=== PATIENT | male | born 1955 | race Caucasian/White ===

== ENCOUNTER → 2017-05-21 | Outpatient (CLI) | payer BC, OTHER ==
[~2017-05-21] MED LIST: NO MEDICATIONS
[2017-05-21 12:22] LABS: MEAN CORPUSCULAR HEMOGLOBIN 30.8 pg (27.0-33.0); MEAN CORPUSCULAR HGB CONC 34.8 g/dl (32.0-36.5); MEAN CORPUSCULAR VOLUME 88.6 fl (80.0-96.0); PLATELET COUNT, AUTOMATED 291 10^3/uL (150-450); RED CELL DISTRIBUTION WIDTH 13.2 % (11.5-14.5); WHITE BLOOD COUNT 12.2 10^3/uL (4.0-10.0)
[2017-05-21 12:35] LABS: INR 0.93
--- NOTE | 2017-05-21 12:56 | REP ---
Clinical: Chest pain. Arthritis . Comparison: None . Technique: PA and lateral. Findings: The mediastinum and cardiac silhouette are normal. The lung young are clear and without acute consolidation, effusion, or pneumothorax. The skeletal structures are intact and normal. Impression: 1. No acute cardiopulmonary process. Signed by Jose R Gaines MD 05/21/2017 12:47 P
[2017-05-21 13:03] LABS: ERYTHROCYTE SEDIMENTATION RATE 66 mm/hr (0-20)
[2017-05-21 13:08] LABS: ALBUMIN 3.5 GM/DL (3.2-5.2); ALBUMIN/GLOBULIN RATIO 0.92 (1.00-1.93); ALKALINE PHOSPHATASE 97 U/L (45-117); ALT/SGPT 29 U/L (12-78); ANION GAP 7 MEQ/L (8-16); AST/SGOT 12 U/L (7-37); BILIRUBIN,TOTAL 0.6 MG/DL (0.2-1.0); BLOOD UREA NITROGEN 14 MG/DL (7-18); CALCIUM LEVEL 8.8 MG/DL (8.8-10.2); CARBON DIOXIDE LEVEL 29 MEQ/L (21-32); CHLORIDE LEVEL 104 MEQ/L (98-107); CREATININE FOR GFR 0.95 MG/DL (0.70-1.30); GLOMERULAR FILTRATION RATE > 60.0 (>49); GLUCOSE, FASTING 74 MG/DL (80-110); POTASSIUM SERUM 4.3 MEQ/L (3.5-5.1); SODIUM LEVEL 140 MEQ/L (136-145); TOTAL PROTEIN 7.3 GM/DL (6.4-8.2)
--- NOTE | 2017-05-21 21:37 | ECGEPIP ---
Stationary ECG Study [facility] Test Date: 2017-05-21 Pat Name: JANNA TUBBS Department: Room: - Gender: M Claims Counsel: YOANA : 1955 Requested By: Sheldon Chambers Order Number: [id number] Reading MD: Les Ugarte Measurements Intervals [place] Rate: 71 P: 54 [place]: 161 QRS: 15 QRSD: 97 T: 2 QT: 378 QTc: 413 Interpretive Statements Normal sinus rhythm Nonspecific T wave abnormality No significant change when compared to prior tracing of 02/06/2012 Electronically Signed On 05-21-2017 21:36:45 EST by Les Ugarte
== END ==
LOC: M ADMPAT 10:16
PROVIDERS: ATTEND Orthopaedic Surgery
DX: M17.12 Unilateral primary osteoarthritis, left knee (principal)

== ENCOUNTER → 2017-05-29 | Outpatient (REF) | payer OTHER ==
[~2017-05-29] MED LIST changes: +COUM2.5T17 PO; +PERC5TAB12 PO
[2017-05-29 18:51] LABS: BASO # 0.1 10^3/uL (0.0-0.2); EOS # 0.2 10^3/uL (0.0-0.50); EOS % 1.9 % (0.0-3.0); IMMATURE GRANULOCYTE % 1.7 % (0-0); LYMPH # 2.3 10^3/uL (1.5-4.5); LYMPH % 26.2 % (24.0-44.0); MEAN CORPUSCULAR HEMOGLOBIN 29.9 pg (27.0-33.0); MEAN CORPUSCULAR HGB CONC 33.6 g/dl (32.0-36.5); MEAN CORPUSCULAR VOLUME 88.8 fl (80.0-96.0); MONO # 0.8 10^3/uL (0.0-0.8); MONO % 9.1 % (0.0-5.0); NEUTROPHILS # 5.2 10^3/uL (1.8-7.7); NEUTROPHILS % 60.1 % (36.0-66.0); PLATELET COUNT, AUTOMATED 370 10^3/uL (150-450); RED CELL DISTRIBUTION WIDTH 13.2 % (11.5-14.5); WHITE BLOOD COUNT 8.6 10^3/uL (4.0-10.0)
[2017-05-29 19:03] LABS: FREE T4 0.93 NG/DL (0.76-1.46)
== END ==
LOC: M SFHCCAPE 10:38
PROVIDERS: ATTEND Physician Assistant
DX: Z13.6 Encounter for screening for cardiovascular disorders (principal)

== ENCOUNTER 2017-06-03 09:59 | Inpatient (IN) | payer BC, OTHER ==
[2017-05-21 10:53] VITALS: BP 124/78
--- NOTE | 2017-05-30 12:15 | HPE ---
DATE OF ADMISSION: 06/03/2017 ATTENDING PHYSICIAN: Dr. Sheldon Quinn. CHIEF COMPLAINT: Left knee pain and stiffness. HISTORY: The patient is a pleasant 62-year-old male with progressively worsening left knee pain and stiffness. He failed to improve with conservative measures. He continues to have symptoms with weightbearing activities and activities of daily living. The patient has consented for an elective left total knee arthroplasty with Dr. Quinn. Medical optimization pending with Jo Grewal. MEDICATIONS: No active medications. ALLERGIES: PENICILLIN CHRONIC MEDICATION CONDITIONS: None. PAST SURGICAL HISTORY: None. FAMILY HISTORY: Noncontributory. SOCIAL HISTORY: The patient is and lives with his spouse. He does not use tobacco products. REVIEW OF SYSTEMS: The patient denies fevers, chills, nausea, vomiting, or diarrhea. Denies chest pain, shortness of breath, cough, headache or abdominal pain. He continues to have left knee pain with weightbearing activities and activities of daily living. PHYSICAL EXAMINATION: The patient is a well-nourished, well-developed male in no apparent distress. VITAL SIGNS: Height 5 foot 6 inches, weight 190 pounds, temperature 96.3, blood pressure 128/84, heart rate 68, respirations 12. NECK: Supple without lymphadenopathy. HEART: Regular rate and rhythm. LUNGS: Clear to auscultation bilaterally. ABDOMEN: Soft, nontender to palpation. Bowel sounds are present. MUSCULOSKELETAL: Left knee reveals very mild diffuse edema. No erythema, warmth or evidence of infection. There is tenderness along the medial and lateral joint lines. The patient can extend almost 0 degrees and flex to approximately 100 degrees. Left lower extremity strength is normal. There is no hip irritability elicited with range of motion. His calf is soft, nontender to palpation with no palpable cords noted. Distally, he is neurovascularly intact. LABORATORY DATA: EKG: Normal sinus rhythm. Nonspecific T-wave abnormality. Chest x-ray: No acute cardiopulmonary process. Urinalysis: Negative with the exception of a small amount of mucous. Urine cultures shows no growth. Nasal and sinus cultures shows normal [place]. Prothrombin time 12.5, INR 0.93. Complete blood count: WBC 8.6, RBC 4.99, hemoglobin 14.9, hematocrit 44.3, platelets 370. Erythrocyte sedimentation rate elevated at 66. Comprehensive metabolic profile: Fasting glucose decreased at 74, BUN 14, creatinine 0.95, GFR greater than 60, sodium 140, potassium 4.3, chloride 104, carbon dioxide 29, anion gap decreased at 7, calcium 8.8, AST 12, ALT 29, alkaline phosphatase 97, total bilirubin 0.6, total protein 7.3, albumin 3.5, albumin globulin ratio decreased at 0.92. IMPRESSION: Left knee degenerative osteoarthritis with x-rays notable for endstage degenerative osteoarthritis with x-rays notable for endstage degenerative changes. Medical optimization pending with Jo Grewal and is not available for review during today's visit. PLAN: The patient has elected for left total knee arthroplasty with Dr. Quinn pending medical optimization. [facility]
[~2017-06-03] VITALS: Ht 167.6 cm; Wt 87.1 kg
[2017-06-03] VITALS (7 sets, daily range): BP systolic 122–144; BP diastolic 66–93
[~2017-06-03 09:59] MED LIST changes: +BUPIVACAINE HCL 0.25% 30 ML VIAL As Ordered ONE; +BUPIVACAINE LIPOSOME/PF 1.3% 20 ML VIAL (13.3MG/ML)(EXPAREL) As Ordered ONE; -COUM2.5T17 PO; +EPINEPHrine INJ 1 MG/ML 1ML AMP As Ordered ONE; -PERC5TAB12 PO; +TRANEXAMIC ACID 100 MG/ML 10ML VIAL As Ordered ONE
[2017-06-03] MEDS ORDERED: LR 1,000 ML IV ONE (10:00)
[2017-06-03] MEDS ORDERED: LIDOCAINE 1% MDV 20ML VIAL SQ PRN (10:00)
[2017-06-03] MEDS ORDERED: ACETAMINOPHEN 500 MG TAB PO ONE (10:00)
[2017-06-03] MEDS ORDERED: fentaNYL 100 MCG/2 ML INJECTION (J3010) As Ordered ONE (10:28)
[2017-06-03] MEDS ORDERED: MIDAZOLAM INJ 2 MG/2 ML VIAL (J2250) As Ordered ONE ×2 (10:28→13:43)
[2017-06-03] MEDS ORDERED: ceFAZolin 1GM INJ (J0690 PER 500MG) As Ordered ONE (11:59)
[2017-06-03] MEDS ORDERED: fentaNYL 100 MCG/2 ML INJECTION (J3010) IV ONE (12:00)
[2017-06-03] MEDS ORDERED: MIDAZOLAM INJ 2 MG/2 ML VIAL (J2250) IV ONE (12:00)
[2017-06-03] MEDS ORDERED: LIDOCAINE 2% INJ 100 MG/5 ML SDV (FOR ANES.) As Ordered ONE (13:44)
[2017-06-03] MEDS ORDERED: ePHEDrine SULFATE 25 MG/5 ML(5MG/ML) SYRINGE As Ordered ONE (13:44)
[2017-06-03] MEDS ORDERED: PROPOFOL 200 MG/20 ML VIAL As Ordered ONE (13:44)
--- NOTE | 2017-06-03 13:58 | RO ---
DATE OF PROCEDURE: 06/03/2017 PREPROCEDURE DIAGNOSIS: Left knee tricompartmental degenerative arthritis. POSTPROCEDURE DIAGNOSIS: Left knee tricompartmental degenerative arthritis. PROCEDURE: Left total knee arthroplasty using a size 4 cruciate retaining femoral component and a size 4 tibial tray with 10 mm rotating platform polyethylene insert and a 38 mm polyethylene patellar button. All components were cemented. Prosthesis made by [employer]. It was a PFC knee. SURGEON: Dr. Sheldon Quinn. NURSES' ASSOCIATION EXECUTIVE DIRECTOR: Mr. Omid Staples. ANESTHESIA: Spinal with left femoral nerve block. ESTIMATED BLOOD LOSS: Less than 20 mL. SPECIMENS: Joint surface. PROCEDURE: Antibiotics were given intravenously preoperatively, then a successful left femoral nerve block and then spinal anesthetic was induced. Martinez catheter was placed. Tourniquet was placed on the left upper thigh and not inflated and the left lower extremity was prepped and draped in the usual sterile fashion. The leg was then elevated and after appropriate time out, the tourniquet was inflated for 53 minutes. A longitudinal incision was then made for a medial parapatellar approach to the knee. Bovie cautery was used to coagulate crossing vessels. He had quite a bit of prepatellar bursitis which was rongeured away and then a medial parapatellar arthrotomy was performed and then subperiosteal dissection around the proximal medial portion of the tibia was performed and then proximal lateral tibial plateau was also performed. We then everted the patella and flexed the knee and excised the ACL. Drill was placed down the center of the femoral canal followed by the intramedullary karen and distal femoral cutting jig set at 5 degree valgus cut for a left knee at 10 mm resection level. The jig was pinned into position. Distal femoral cut performed. The AP sizer jig measured for a size 4 femoral component and then with 3 degree external rotation jig was pinned and followed by the 4-in-1 block. Anterior posterior chamfer cuts performed taking great care to protect the surrounding soft tissues. We then exposed the proximal tibia and used the extramedullary karen to estimate being parallel to the mechanical axis of the tibia. We referenced off the medial tibial condyle at 4 mm resection level. Block was pinned into position. Secondary check with extramedullary karen confirmed that we appeared to be parallel to the mechanical axis. Proximal tibial osteotomy then performed. We then the alignment interventional tech laterally and performed a completion medial meniscectomy with debridement of the posterior and medial osteophytes. We then placed the alignment interventional tech medially and performed a completion lateral meniscectomy with debridement of the posterior lateral osteophytes. The 10 mm spacer block fit nicely with good symmetry to varus valgus stress testing both in flexion and in extension. We then exposed the proximal tibia size for a #4 tibial tray which was then pinned in position followed by the reamer and broach followed by the trial polyethylene. The trial femoral component was applied and the knee was brought into extension. The patella was everted and the patellar osteotomy performed. Lug holes drilled followed by the trial polyethylene patellar component and patellofemoral tracking was anatomic. We then drilled the lug holes for the femur, removed all the trial components, and instilled Exparel into the periosteum of the femur and the tibia as well as the posterior capsule and the arthrotomy edges. Then Mr. Staples mixed the cement on the back table as I prepared the bony surfaces for cementing with a copious amount of pulsatile lavage irrigant solution. Mr. Staples was also critical to the success of the operation by helping to manipulate the knee, helping to apply appropriate soft tissue retraction so I could perform the operation smoothly and efficiently as well as many other tasks. Once all the bony surfaces were thoroughly dried after being irrigated, I cemented the tibial tray, removed excess cement, placed the polyethylene, then cemented the femoral component, removed all excess cement, brought the knee into extension, cemented the patellar button and clamped it into position with the knee in extension until the cement hardened. All the excess cement was removed around the patella. As we were awaiting for this to harden, we copiously pulsatile lavage irrigated out the knee joint again as we did several times throughout the operation. Once the cement had hardened, I instilled the tranexamic acid into the knee joint and closed the arthrotomy apex with two #1 PDS sutures, the medial parapatellar area was closed with a single #1 PDS suture and then we closed the arthrotomy with a running #1 double armed Stratafix. We copiously irrigated again and then the tourniquet was released after we had closed the arthrotomy, and then subdermal tissues were closed with interrupted #2-0 PDS sutures, skin was closed with radames covered by Adaptic dry sterile bulky dressing. He was then transferred to the recovery room in stable condition. There were no intraoperative complications.
[2017-06-03] MEDS ORDERED: MORPHINE 1MG/ML IN 0.9% NACL 100ML IV BAG As Ordered ONE (14:00)
[2017-06-03] MEDS ORDERED: dexameTHASONE 10 MG/1 ML VIAL PRES.FREE (J1100) ONE (14:14)
[2017-06-03] MEDS ORDERED: ROPIvacaine 0.5% 30 ML INJECTION (J2795 PER 1MG) ONE (14:14)
[2017-06-03] MEDS ORDERED: EPIDURAL/PCA KEYS XX PRN (14:15)
[2017-06-03] MEDS ORDERED: NALBUPHINE HCL 10 MG/ML AMP (J2300) IV PRN (14:15)
[2017-06-03] MEDS ORDERED: PERCOCET 5MG/325MG TAB PO PRN (14:15)
[2017-06-03] MEDS ORDERED: FLEET ENEMA PR PRN (14:15)
[2017-06-03] MEDS ORDERED: fentaNYL 100 MCG/2 ML INJECTION (J3010) IV PRN (14:15)
[2017-06-03] MEDS ORDERED: diphenhydrAMINE INJ 50MG/ML VIAL (J1200) IV PRN (14:15)
[2017-06-03] MEDS ORDERED: MORPHINE 1MG/ML IN 0.9% NACL 100ML IV BAG IV PRN (14:15)
[2017-06-03] MEDS ORDERED: NALOXONE INJ 0.4 MG/1 ML VIAL (J2310) IV PRN (14:15)
[2017-06-03] MEDS ORDERED: ONDANSETRON 4MG/2ML VIAL (J2405) IV PRN ×2 (14:15)
[2017-06-03] MEDS ORDERED: ACETAMINOPHEN TAB 650MG DOSE (2X325MG) PO PRN (14:15)
[2017-06-03] MEDS ORDERED: LR 1,000 ML IV SCH (14:15)
[2017-06-03] MEDS ORDERED: WARFARIN SOD 5 MG TAB PO ONE (17:00)
[2017-06-03] MEDS: NS 1,000 ML IV SCH (17:52)
[2017-06-04 02:00] VITALS: BP 132/88
[2017-06-04] MEDS: NS 1,000 ML IV SCH (02:30)
[2017-06-04 04:42] VITALS: O2SAT 97
[2017-06-04 06:00] VITALS: BP 139/86
[2017-06-04] MEDS ORDERED: PERCOCET 5MG/325MG TAB PO PRN ×2 (07:00)
[2017-06-04] MEDS ORDERED: ONDANSETRON 4 MG TAB (S0181) PO PRN (07:00)
[2017-06-04 07:30] LABS: MEAN CORPUSCULAR HEMOGLOBIN 30.3 pg (27.0-33.0); MEAN CORPUSCULAR HGB CONC 34.7 g/dl (32.0-36.5); MEAN CORPUSCULAR VOLUME 87.1 fl (80.0-96.0); PLATELET COUNT, AUTOMATED 323 10^3/uL (150-450); RED CELL DISTRIBUTION WIDTH 13.2 % (11.5-14.5); WHITE BLOOD COUNT 15.1 10^3/uL (4.0-10.0)
[2017-06-04 07:37] LABS: ANION GAP 8 MEQ/L (8-16); BLOOD UREA NITROGEN 19 MG/DL (7-18); CALCIUM LEVEL 8.7 MG/DL (8.8-10.2); CARBON DIOXIDE LEVEL 25 MEQ/L (21-32); CHLORIDE LEVEL 102 MEQ/L (98-107); CREATININE FOR GFR 1.07 MG/DL (0.70-1.30); GLOMERULAR FILTRATION RATE > 60.0 (>49); GLUCOSE, FASTING 110 MG/DL (80-110); POTASSIUM SERUM 3.9 MEQ/L (3.5-5.1); SODIUM LEVEL 135 MEQ/L (136-145)
[2017-06-04 07:43] LABS: INR 1.11
--- NOTE | 2017-06-04 08:58 | REP ---
Left knee two views postoperative study: There is a total hip arthroplasty with the components tightly applied and in satisfactory positions and alignment. Skin radames are incidentally identified. Signed by Tim Meyer MD 06/04/2017 08:50 A
[2017-06-04] MEDS ORDERED: MOM 30ML SUSPENSION UDC PO SCH (09:00)
[2017-06-04] MEDS ORDERED: MIRALAX *UNIT DOSE* 17GM PACKET PO SCH (09:00)
[2017-06-04] MEDS ORDERED: COUM2.5T17 PO (09:05)
[2017-06-04] MEDS ORDERED: PERC5TAB12 PO (09:05)
[2017-06-04] MEDS ORDERED: ENOXAPARIN 40 MG/0.4 ML SYRINGE (J1650) SC ONE (09:30)
[2017-06-04] MEDS ORDERED: WARFARIN SOD 5 MG TAB PO ONE (17:00)
[2017-06-04] MEDS ORDERED: WARFARIN SOD 7.5 MG TAB PO ONE (17:00)
--- NOTE | 2017-06-06 21:11 | DSES ---
DATE OF ADMISSION: 06/03/2017 DATE OF DISCHARGE: 06/04/2017 ATTENDING PHYSICIAN: Dr. Reyes Quinn. ADMISSION DIAGNOSIS: Osteoarthritis left knee. DISCHARGE DIAGNOSIS: Osteoarthritis left knee status post left total knee arthroplasty. OPERATION PERFORMED: Left total knee arthroplasty. HISTORY: This is a pleasant 62-year-old male patient with progressively worsening left knee pain and stiffness. He failed to improve with conservative management. He was admitted for elective knee replacement on the left side. HOSPITAL COURSE The patient was admitted on day of surgery, underwent a left total knee arthroplasty which was uneventful. He did well in the postoperative period. His hospital course was without complications. He was up with physical therapy per their protocol. His pain was controlled. On day of discharge, he was doing well, weightbearing as tolerated on his left lower extremity and moves his left knee to prevent stiffness. He will use adjusted dose Coumadin and thromboembolism deterrent stockings (TEDs) for 30 days postoperative for deep venous thrombosis (DVT) prophylaxis. He will resume his preoperative medications and diet. He was given instructions to include but not limited to wound monitoring, activity limitations. He will use oral pain medications for pain control. Followup in our office in 10-14 days for surgical followup. Please refer to the medical record for further details.
== END 2017-06-04 13:05 | disposition home health service (06) | DRG 302 ==
LOC: M OR 09:59 → M MS5PR 14:55
PROVIDERS: ADMIT Orthopaedic Surgery; ATTEND Orthopaedic Surgery
PROC: 0SRD0J9 Replacement of Left Knee Joint with Synthetic Substitute, Cemented, Open Approach (ICD-10-PCS; principal; 2017-06-03 12:15)
DX: M17.12 Unilateral primary osteoarthritis, left knee (principal); Z88.0 Allergy status to penicillin

== ENCOUNTER → 2017-06-09 | Outpatient (REF) | payer BC, OTHER ==
[~2017-06-09] MED LIST changes: -BUPIVACAINE HCL 0.25% 30 ML VIAL As Ordered ONE; -BUPIVACAINE LIPOSOME/PF 1.3% 20 ML VIAL (13.3MG/ML)(EXPAREL) As Ordered ONE; +COUM2.5T17 PO; -EPINEPHrine INJ 1 MG/ML 1ML AMP As Ordered ONE; +PERC5TAB12 PO; -TRANEXAMIC ACID 100 MG/ML 10ML VIAL As Ordered ONE
[2017-06-09 18:46] LABS: INR 1.68
== END ==
LOC: M SHH 17:32
PROVIDERS: ATTEND Nurse Practitioner Family
DX: Z79.01 Long term (current) use of anticoagulants (principal)

== ENCOUNTER → 2017-06-12 | Outpatient (REF) | payer OTHER ==
[2017-06-12 14:12] LABS: INR 2.66
== END ==
LOC: M SHH 13:46
PROVIDERS: ATTEND Nurse Practitioner Family
DX: Z79.01 Long term (current) use of anticoagulants (principal)

== ENCOUNTER → 2017-06-16 | Outpatient (REF) | payer OTHER ==
[2017-06-16 15:43] LABS: INR 3.4
== END ==
LOC: M SHH 15:22
PROVIDERS: ATTEND Nurse Practitioner Family
DX: Z79.01 Long term (current) use of anticoagulants (principal)

== ENCOUNTER → 2017-06-19 | Outpatient (REF) | payer OTHER ==
[2017-06-19 15:23] LABS: INR 1.83
== END ==
LOC: M SHH 15:02
PROVIDERS: ATTEND Nurse Practitioner Family
DX: Z79.01 Long term (current) use of anticoagulants (principal)

== ENCOUNTER → 2017-06-24 | Outpatient (REF) | payer OTHER ==
[2017-06-24 16:40] LABS: INR 1.44
== END ==
LOC: M LABDRWCV 16:12
PROVIDERS: ATTEND Orthopaedic Surgery
DX: Z47.1 Aftercare following joint replacement surgery (principal)

== ENCOUNTER → 2017-06-26 | Outpatient (REF) | payer OTHER ==
[2017-06-26 17:18] LABS: INR 1.84
== END ==
LOC: M LABDRWCV 16:08
DX: Z47.1 Aftercare following joint replacement surgery (principal)

== ENCOUNTER → 2017-07-01 | Outpatient (REF) | payer OTHER ==
[2017-07-01 17:00] LABS: INR 1.82; PROTHROMBIN TIME 21.7 SECONDS (12.4-14.5)
== END ==
LOC: M LABDRWCV 16:20
DX: Z47.1 Aftercare following joint replacement surgery (principal)

== ENCOUNTER → 2018-07-21 | Outpatient (CLI) | payer MEDICARE, BC, OTHER ==
[~2018-07-21] MED LIST changes: +XARE10TA PO
[2018-07-21 08:34] LABS: HEMATOCRIT 44.2 % (42.0-52.0); HEMOGLOBIN 15.2 g/dl (13.5-17.5); MEAN CORPUSCULAR HEMOGLOBIN 30.9 pg (27.0-33.0); MEAN CORPUSCULAR HGB CONC 34.4 g/dl (32.0-36.5); MEAN CORPUSCULAR VOLUME 89.8 fl (80.0-96.0); PLATELET COUNT, AUTOMATED 277 10^3/uL (150-450); RED BLOOD COUNT 4.92 10^6/uL (4.30-6.10); WHITE BLOOD COUNT 7.1 10^3/uL (4.0-10.0)
[2018-07-21 08:49] LABS: INR 0.96; PROTHROMBIN TIME 12.8 SECONDS (12.1-14.4)
[2018-07-21 09:04] LABS: ERYTHROCYTE SEDIMENTATION RATE 19 mm/hr (0-20)
[2018-07-21 09:09] LABS: ALBUMIN 3.8 GM/DL (3.2-5.2); ALT/SGPT 35 U/L (12-78); BILIRUBIN,TOTAL 0.4 MG/DL (0.2-1.0); BLOOD UREA NITROGEN 18 MG/DL (7-18); CARBON DIOXIDE LEVEL 28 MEQ/L (21-32); CHLORIDE LEVEL 106 MEQ/L (98-107); CREATININE FOR GFR 1.04 MG/DL (0.70-1.30); GLOMERULAR FILTRATION RATE > 60.0 (>49); GLUCOSE, FASTING 86 MG/DL (70-100); POTASSIUM SERUM 4.2 MEQ/L (3.5-5.1); SODIUM LEVEL 140 MEQ/L (136-145); TOTAL PROTEIN 7.1 GM/DL (6.4-8.2)
--- NOTE | 2018-07-21 09:50 | REP ---
Chest x-ray: Two views. History: Preoperative testing. Comparison study: May 21, 2017. Findings: The patient is status post lower cervical spine ventral discectomy and fusion plating. There are mild degenerative changes in the thoracic spine. No other bony abnormality is seen. Lungs are well inflated and clear. Heart size is normal. Pulmonary vasculature is not increased. The pleural angles are sharp. There is some vascular calcification in the thoracic aorta. Impression: No active cardiopulmonary disease. Status post lower cervical spine discectomy and fusion plating. Electronically Signed by Modesto Camargo MD 07/21/2018 09:42 A
--- NOTE | 2018-07-21 19:32 | ECGEPIP ---
Stationary ECG Study [facility] Test Date: 2018-07-21 Pat Name: JANNA TUBBS Department: Room: - Gender: M Security Solutions Architect: : 1955 Requested By: Sheldon Chambers @ [facility] Order Number: [id number] Reading MD: Les Ugarte Measurements Intervals [place] Rate: 61 P: 58 [place]: 159 QRS: 9 QRSD: 101 T: -11 QT: 392 QTc: 397 Interpretive Statements Normal sinus rhythm Nonspecific T wave abnormality No significant change when compared to prior tracing of 05/21/2017 Electronically Signed On 07-21-2018 19:31:55 EST by Les Ugarte
== END ==
LOC: M LAB 08:08
PROVIDERS: ATTEND Orthopaedic Surgery
DX: Z01.818 Encounter for other preprocedural examination (principal); M17.11 Unilateral primary osteoarthritis, right knee; Z98.890 Other specified postprocedural states

== ENCOUNTER 2018-08-12 07:30 | Inpatient (IN) | payer MEDICARE, BC, OTHER ==
--- NOTE | 2018-08-03 10:51 | HPE ---
DATE OF ADMISSION: 08/12/2018 HISTORY OF PRESENT ILLNESS: This is a pleasant male with continuing symptomatic right knee osteoarthritis. He is consented for a right total knee arthroplasty per Dr. Reyes Quinn. Medical optimization scheduled on 08/05/[address] [facility]. X-rays are consistent with advanced osteoarthritis. ALLERGIES: The patient notes rash years ago with PENICILLIN. MEDICATIONS: None. MEDICAL PROBLEMS: Symptomatic right knee osteoarthritis. PAST SURGICAL HISTORY: Left total knee arthroplasty on 06/03/2017. SOCIAL HISTORY: Denies smoking. Minimal ethanol intake. Denies illicit drugs. FAMILY HISTORY: Noncontributory. REVIEW OF SYSTEMS: Denies chest pain, shortness of breath, dyspnea on exertion, fever, chills, malaise, upper respiratory or urinary tract symptoms. LABS: Reviewed and unremarkable other than anion gap being at 6, GFR was greater than 60. CHEST X-RAY: Unremarkable via [facility] 07/21/2018, as read by Dr. Camargo. EKG: Normal sinus rhythm, read by Dr. Les Ugarte. PHYSICAL EXAMINATION: Temperature 98.4, pulse 86, respirations 19, blood pressure (BP) 132/78. This is a pleasant, well-developed, well-nourished, overweight male in no acute distress. He is alert and oriented times three. Mood and affect are appropriate. He is ambulating without overt antalgia, favoring right knee. It is not effused, ecchymotic or erythematous. Bilateral lower extremities are benign and noninfectious looking. Compartments are supple, soft, nontender to palpation, grossly intact to light touch. Negative calf tenderness, Toni sign, palpable cords. He has right knee positive tenderness to palpation at the medial joint line. Abdomen soft, nontender times four. Chest rises symmetrically. Regular rate and rhythm. Lungs: Clear to auscultation. Neck: Supple. Negative jugular venous distention (JVD) or bruits. Normocephalic. IMPRESSION: 1. Right knee symptomatic osteoarthritis. 2. Patient consented for a right total knee arthroplasty per Dr. Reyes Quinn. 3. Medical optimization scheduled with [facility] on 08/05/2018, awaiting results. Thus far, labs and chest x-ray have been unremarkable. 4. On-call to operating room (OR), 2 grams IV Kefzol in OR. 5. Sequential compression device (SCD) and thromboembolic deterrent stockings (TEDS) in OR. MTDD
[~2018-08-12] VITALS: Ht 167.6 cm; Wt 90.3 kg
[~2018-08-12 07:30] MED LIST changes: +ACETAMINOPHEN 500 MG TAB PO ONE; +LR 1,000 ML IV ONE; +VANCOMYCIN HCL 1,000 MG, VIAL MATE ADAPTER 1 EACH in D5W 250 ML IV ONE; -XARE10TA PO
[2018-08-12] MEDS ORDERED: VANCOMYCIN 1000 MG/20 ML VIAL (J3370) As Ordered ONE (09:21)
[2018-08-12] MEDS ORDERED: ONDANSETRON 4MG/2ML VIAL (J2405) As Ordered ONE (11:20)
[2018-08-12] MEDS ORDERED: dexameTHASONE 4 MG/ML 1ML VIAL (J1100) As Ordered ONE (11:20)
[2018-08-12] MEDS ORDERED: MIDAZOLAM INJ 2 MG/2 ML VIAL (J2250) As Ordered ONE (11:21)
[2018-08-12] MEDS ORDERED: PROPOFOL 500 MG/50 ML VIAL As Ordered ONE (11:21)
[2018-08-12] MEDS ORDERED: BUPIVACAINE/DEXTROSE 0.75% 2 ML AMP As Ordered ONE (11:34)
[2018-08-12] MEDS ORDERED: LIDOCAINE 2% INJ 100 MG/5 ML SDV (FOR ANES.) As Ordered ONE (11:36)
[2018-08-12] MEDS: MIDAZOLAM INJ 2 MG/2 ML VIAL (J2250) IV SCH ×2 (11:43→11:45)
[2018-08-12] MEDS: fentaNYL 100 MCG/2 ML INJECTION (J3010) IV SCH ×2 (11:43→11:54)
[2018-08-12] MEDS ORDERED: TRANEXAMIC ACID 100 MG/ML 10ML VIAL As Ordered ONE (12:03)
[2018-08-12] MEDS ORDERED: EPINEPHrine INJ 1 MG/ML 1ML AMP As Ordered ONE (12:03)
[2018-08-12] MEDS ORDERED: BUPIVACAINE LIPOSOME/PF 1.3% 20ML VIAL (13.3MG/ML)(EXPAREL)(C9290 PER1MG) As Ordered ONE (12:04)
[2018-08-12] MEDS ORDERED: BUPIVACAINE HCL 0.25% 30 ML VIAL As Ordered ONE (12:04)
[2018-08-12] MEDS ORDERED: CLINDAMYCIN INJ 900MG/6ML VIAL As Ordered ONE (12:31)
[2018-08-12] MEDS ORDERED: PROPOFOL 200 MG/20 ML VIAL As Ordered ONE ×2 (13:53→14:21)
[2018-08-12] MEDS ORDERED: METOCLOPRAMIDE INJ 10MG/2ML VIAL (J2765) IV PRN (15:30)
[2018-08-12] MEDS ORDERED: ACETAMINOPHEN TAB 650MG DOSE (2X325MG) PO PRN (15:30)
[2018-08-12] MEDS ORDERED: FLEET ENEMA PR PRN (15:30)
[2018-08-12] MEDS ORDERED: fentaNYL 100 MCG/2 ML INJECTION (J3010) IV PRN (15:30)
[2018-08-12] MEDS ORDERED: MEPERIDINE INJ 25 MG/ML VIAL (J2175) IV PRN (15:30)
[2018-08-12] MEDS ORDERED: LR 1,000 ML IV SCH ×2 (15:30)
[2018-08-12] MEDS ORDERED: ONDANSETRON 4MG/2ML VIAL (J2405) IV PRN (15:30)
[2018-08-12] MEDS ORDERED: PERCOCET 5MG/325MG TAB PO PRN (15:30)
--- NOTE | 2018-08-12 15:48 | REP ---
Right knee two views portable study: There is a total knee arthroplasty with the components tightly applied and in satisfactory positions alignment. Skin radames are incidentally noted. Electronically Signed by Tim Meyer MD 08/12/2018 03:39 P
[2018-08-12 15:55] VITALS: BP 124/73
[2018-08-12] MEDS ORDERED: HYDROMORPHONE HCL 0.5 MG/ 0.5 ML SYRINGE (J1170 PER 1) IV PRN (16:00)
[2018-08-12 16:25] VITALS: BP 129/75
[2018-08-12 17:25] VITALS: BP 143/87
[2018-08-12 18:25] VITALS: BP 144/82
[2018-08-12 19:25] VITALS: BP 160/90
[2018-08-12 20:25] VITALS: BP 132/83
[2018-08-12] MEDS: HYDROMORPHONE HCL 0.5 MG/ 0.5 ML SYRINGE (J1170 PER 1) IV PRN (20:52)
[2018-08-13] MEDS: HYDROMORPHONE HCL 0.5 MG/ 0.5 ML SYRINGE (J1170 PER 1) IV PRN ×2 (00:12→06:02)
[2018-08-13] MEDS ORDERED: VANCOMYCIN HCL 1,000 MG, VIAL MATE ADAPTER 1 EACH in D5W 250 ML IV SCH (01:00)
[2018-08-13 02:00] VITALS: BP 137/74
[2018-08-13 06:00] VITALS: BP 158/100
[2018-08-13 07:00] LABS: HEMATOCRIT 37.8 % (42.0-52.0); HEMOGLOBIN 13.3 g/dl (13.5-17.5); MEAN CORPUSCULAR HEMOGLOBIN 30.5 pg (27.0-33.0); MEAN CORPUSCULAR HGB CONC 35.2 g/dl (32.0-36.5); MEAN CORPUSCULAR VOLUME 86.7 fl (80.0-96.0); PLATELET COUNT, AUTOMATED 278 10^3/uL (150-450); RED BLOOD COUNT 4.36 10^6/uL (4.30-6.10)
[2018-08-13 07:18] LABS: INR 1.05; PROTHROMBIN TIME 13.8 SECONDS (12.1-14.4)
[2018-08-13 07:25] LABS: BLOOD UREA NITROGEN 15 MG/DL (7-18); CALCIUM LEVEL 8.3 MG/DL (8.8-10.2); CARBON DIOXIDE LEVEL 24 MEQ/L (21-32); CHLORIDE LEVEL 106 MEQ/L (98-107); CREATININE FOR GFR 1.11 MG/DL (0.70-1.30); GLOMERULAR FILTRATION RATE > 60.0 (>49); GLUCOSE, FASTING 113 MG/DL (70-100); POTASSIUM SERUM 3.9 MEQ/L (3.5-5.1); SODIUM LEVEL 138 MEQ/L (136-145)
[2018-08-13] MEDS ORDERED: PERCOCET 5MG/325MG TAB PO PRN (08:15)
[2018-08-13] MEDS ORDERED: PERC5TAB12 PO (08:38)
[2018-08-13] MEDS ORDERED: XARE10TA PO (08:38)
[2018-08-13] MEDS ORDERED: MIRALAX *UNIT DOSE* 17GM PACKET PO SCH (09:00)
[2018-08-13] MEDS ORDERED: SENOKOT S TAB PO SCH (09:00)
[2018-08-13] MEDS ORDERED: MOM 30ML SUSPENSION UDC PO SCH (09:00)
[2018-08-13] MEDS ORDERED: RIVAROXABAN 10 MG TAB (XARELTO) PO SCH (18:00)
--- NOTE | 2018-08-14 17:04 | RO ---
DATE OF PROCEDURE: 08/12/2018 PREPROCEDURE DIAGNOSIS: Right knee degenerative arthritis. POSTPROCEDURE DIAGNOSIS: Right knee degenerative arthritis. PROCEDURE: Right total knee arthroplasty using a size 7 cruciate retaining Attune cemented femoral component with a size 6 tibial tray, with a size 6 rotating platform polyethylene insert and a 38 mm polyethylene button. All components were cemented. Prosthesis was made by [employer]. SURGEON: Dr. Sheldon Quinn CHIP WASHER: Mr. Stewart Zheng ANESTHESIA: Spinal with right femoral nerve block. COMPLICATIONS: None. DESCRIPTION OF PROCEDURE: Antibiotics were given intravenously preoperatively and then successful right femoral nerve block, and then a spinal anesthetic was established. Tourniquet was placed on the right upper thigh and not inflated. The right lower extremity was carefully prepped and draped in the usual sterile fashion and after appropriate time-out elevated and the tourniquet inflated. A longitudinal incision was then made for a medial parapatellar approach to the knee. Bovie cautery was used to coagulate crossing vessels. Medial parapatellar arthrotomy was then performed. Subperiosteal dissection around the proximal, medial, and lateral tibial plateaus was performed and then we everted the patella and flexed the knee, excised the anterior cruciate ligament (ACL), placed the drill down the center of the femoral canal followed by the distal femoral cutting jig set at a 5-degree valgus cut for a right knee at 9 mm resection level. It was pinned into position. Distal femoral cut performed. AP sizing jig measured for a size #7 femoral component. Three-degree external rotation was dialed in, pins placed, followed by the four-in-one block and then the anterior, posterior chamfer cuts performed, taking great care to protect the surrounding soft tissues. We then placed the jig for the notchplasty and performed a notch excision and then we exposed the proximal tibia and used the extramedullary alignment jig to estimate being parallel to the mechanical axis of the tibia. We referenced off the medial tibial condyle at 4 mm resection level. Block was pinned into position. Secondary check with the extramedullary karen confirmed we appeared to be parallel to the mechanical axis. We then performed a proximal tibial osteotomy, placed the lamina human resources compensation analyst medially and performed a completion lateral meniscectomy and debridement of posterolateral osteophytes. Then placed the lamina human resources compensation analyst laterally and performed a completion medial meniscectomy and debridement of the posteromedial osteophytes. We then trialed our sizing jig and it was between a 5 and a 6. We then exposed the proximal tibia and sized for a #6 tray, which was pinned into position followed by the reamer and broach, and then we placed first the 6 mm insert and then the #7 femoral component. And we had some difficulty because the femoral component seemed to be rocking, especially in flexion. We downsized to a #5 trial, and we still had the same problem. Took the tray out, still was rocking; thus, I looked closely and it appeared to be the notch - it was still a bit prominent laterally, so I reapplied the jig and re-did the notch cut, making sure it was flush, and this illuminated the rocking problem. We then went to a size 6 trial, brought the knee into extension. He was actually quite stable to varus/valgus stress testing both in flexion and extension. I did release the posterior cruciate ligament (PCL) a bit, and I made sure we had good complete medial release to help minimize any posteromedial tightness. We then everted the patella, performed a patellar osteotomy, sized for a 38 button. Lug holes drilled, trial placed, and the trial patellofemoral tracking was anatomic. We then drilled the lug holes for the femur, removed all of the trial components, placed Exparel in the subperiosteal tissues around the proximal tibia and the distal femur. Then, Mr. Stewart Zheng mixed the cement on the back table as I prepared the bony surfaces for cementing with a copious amount of pulsatile lavage irrigant solution. Mr. Zheng was also critical to the success of the operation by helping to manipulate the knee, apply appropriate soft tissue retraction so I could perform the operation smoothly and efficiently and safely, helped to also close the wound and prepare the patient otherwise. We then cemented the tibial tray, removed excess cement, placed the polyethylene and then cemented the femoral component, removed excess cement, brought the knee into extension and cemented the patellar button, held it with a clamp until the cement hardened with the knee in extension. As we were awaiting this, we copiously pulsatile lavage irrigated out the knee joint and then placed tranexamic acid within the knee joint and then began closing the apex of the arthrotomy with two #1 PDS sutures, and used a running double arm Stratafix to close the capsule. Tourniquet was released, and we irrigated again between layers, closed the deep subdermal tissues with interrupted #2-0 PDS sutures, skin was closed with radames, covered by Optifoam and a dry sterile bulky dressing. He was then transferred to the recovery room in stable condition. There were no intraoperative complications.
--- NOTE | 2018-08-18 16:36 | DSES ---
DATE OF ADMISSION: 08/12/2018 DATE OF DISCHARGE: 08/13/2018 ATTENDING PHYSICIAN: Dr. Quinn ADMISSION DIAGNOSIS: Right knee degenerative arthritis. DISCHARGE DIAGNOSIS: Right knee degenerative arthritis, status post right total knee arthroplasty. HISTORY: The patient is a 58-year-old male with progressively worsening right knee pain and stiffness. He failed to improve with conservative measures. He continued to have symptoms with weightbearing activities and activities of daily living. He consented for an elective right total knee arthroplasty with Dr. Quinn for his continued symptoms. OPERATION PERFORMED: Right total knee arthroplasty. HOSPITAL COURSE: The patient underwent a right total knee arthroplasty under spinal anesthesia with femoral nerve block. The surgery was uneventful and his hospital course was without complication. He was up with physical therapy per their protocol, weightbearing as tolerated on the right lower extremity. The patient was discharged on oral pain medications and will resume his preoperative medications. The patient will use his thromboembolic deterrent stockings and take his anticoagulant as directed to prevent deep venous thrombosis. The patient will follow up in our office in 12-14 days for wound check and staple removal. He is encouraged to contact our office sooner if there is any increase in pain, drainage, redness, numbness or tingling in the extremity, fever greater than 101 degrees or any other concerns. Please see medical record for additional details.
== END 2018-08-13 11:15 | disposition home or self-care (01) | DRG 470 ==
LOC: M OR 08:43 → M MS5PR 15:58
PROVIDERS: ADMIT Orthopaedic Surgery; ATTEND Orthopaedic Surgery
PROC: 0SRC0J9 Replacement of Right Knee Joint with Synthetic Substitute, Cemented, Open Approach (ICD-10-PCS; principal; 2018-08-12 13:00)
DX: M17.11 Unilateral primary osteoarthritis, right knee (principal); Z96.652 Presence of left artificial knee joint; Z88.0 Allergy status to penicillin; Z87.891 Personal history of nicotine dependence

== ENCOUNTER → 2023-07-18 | Outpatient (CLI) | payer MEDICARE, BC, OTHER ==
[~2023-07-18] MED LIST changes: -ACETAMINOPHEN 500 MG TAB PO ONE; -LR 1,000 ML IV ONE; -VANCOMYCIN HCL 1,000 MG, VIAL MATE ADAPTER 1 EACH in D5W 250 ML IV ONE; +XARE10TA PO
[2023-07-18 13:29] LABS: HEMATOCRIT 45.5 % (42.0-52.0); HEMOGLOBIN 15.4 g/dl (13.5-17.5); MEAN CORPUSCULAR HEMOGLOBIN 30.8 pg (27.0-33.0); MEAN CORPUSCULAR HGB CONC 33.8 g/dl (32.0-36.5); PLATELET COUNT, AUTOMATED 301 10^3/uL (150-450); WHITE BLOOD COUNT 7.9 10^3/uL (4.0-10.0)
[2023-07-18 13:58] LABS: CREATININE, URINE 222.9 MG/DL; MAU/CREAT RATIO 3.5 MCG/MG (0.0-30.0)
[2023-07-18 13:59] LABS: PSA SCREENING 3.66 NG/ML (< 4.00)
[2023-07-18 14:02] LABS: C REACTIVE PROTEIN QUANTITATIV < 0.40 MG/DL (<1.0)
[2023-07-18 14:03] LABS: VITAMIN B12 LEVEL 139 PG/ML (211-911)
[2023-07-18 14:05] LABS: THYROID STIMULATING HORMONE 2.675 uIU/ML (0.55-4.78)
[2023-07-18 14:08] LABS: ALBUMIN 3.7 G/DL (3.2-5.2); ALKALINE PHOSPHATASE 72 U/L (46-116); ALT/SGPT 25 U/L (7.0-40); AST/SGOT 13 U/L (<34); BILIRUBIN,TOTAL 0.5 MG/DL (0.3-1.2); BLOOD UREA NITROGEN 21 MG/DL (9-23); CALCIUM LEVEL 9.2 MG/DL (8.3-10.6); CARBON DIOXIDE LEVEL 28 MMOL/L (20-31); CHLORIDE LEVEL 106 MMOL/L (98-107); CHOLESTEROL LEVEL 286 MG/DL (<200); CHOLESTEROL RISK RATIO 6.23 (<5); CREATININE FOR GFR 0.33 MG/DL (0.70-1.30); GLOMERULAR FILTRATION RATE > 60.0 (>42); GLUCOSE, FASTING 82 MG/DL (74-106); HDL CHOLESTEROL 45.9 MG/DL (>40); LDL CHOLESTEROL 202.3 MG/DL (<100); NON-HDL-C 240.1 MG/DL; POTASSIUM SERUM 4.6 MMOL/L (3.5-5.1); SODIUM LEVEL 140 MMOL/L (136-145); TOTAL 25(OH) VITAMIN D 65.6 NG/ML (20.0-100.0); TOTAL PROTEIN 7.2 G/DL (5.7-8.2); TRIGLYCERIDES LEVEL 189 MG/DL (<150)
[2023-07-18 14:41] LABS: HEMOGLOBIN A1c 5.2 % (4.0-6.0)
== END ==
LOC: M PLALAB 10:52
PROVIDERS: ATTEND Internal Medicine Hematology
DX: Z13.6 Encounter for screening for cardiovascular disorders (principal); Z12.5 Encounter for screening for malignant neoplasm of prostate; Z12.11 Encounter for screening for malignant neoplasm of colon; M17.12 Unilateral primary osteoarthritis, left knee
CPT/HCPCS: 36415; 80053; 80061; 82043; 82306; 82607; 83036; 83525; 84439; 84443; 85027; 86140; G0103

== ENCOUNTER → 2023-12-24 | Outpatient (CLI) | payer MEDICARE, BC ==
[2023-12-24 18:25] LABS: BASO # 0.1 10^3/uL (0.0-0.2); BASO % 0.8 % (0.0-1.0); EOS # 0.2 10^3/uL (0.0-0.5); EOS % 2.2 % (0.0-3.0); HEMATOCRIT 42.7 % (42.0-52.0); HEMOGLOBIN 14.6 g/dl (13.5-17.5); LYMPH # 2.2 10^3/uL (1.5-5.0); LYMPH % 24.9 % (24.0-44.0); MEAN CORPUSCULAR HEMOGLOBIN 31.3 pg (27.0-33.0); MEAN CORPUSCULAR HGB CONC 34.2 g/dl (32.0-36.5); MEAN CORPUSCULAR VOLUME 91.6 fl (80.0-96.0); MONO # 0.9 10^3/uL (0.0-0.8); MONO % 9.8 % (2.0-8.0); NEUTROPHILS # 5.5 10^3/uL (1.5-8.5); NEUTROPHILS % 61.4 % (36.0-66.0); PLATELET COUNT, AUTOMATED 307 10^3/uL (150-450); RED BLOOD COUNT 4.66 10^6/uL (4.30-6.10); WHITE BLOOD COUNT 8.9 10^3/uL (4.0-10.0)
[2023-12-24 18:55] LABS: CREATININE, URINE 200.4 MG/DL; MAU/CREAT RATIO 4.4 MCG/MG (0.0-30.0)
[2023-12-24 19:00] LABS: C REACTIVE PROTEIN QUANTITATIV < 0.40 MG/DL (<1.0)
[2023-12-24 19:05] LABS: VITAMIN B12 LEVEL 803 PG/ML (211-911)
[2023-12-24 19:06] LABS: FREE T4 1.25 NG/DL (0.89-1.76)
[2023-12-24 19:13] LABS: ALBUMIN 3.9 G/DL (3.2-5.2); ALKALINE PHOSPHATASE 71 U/L (46-116); ALT/SGPT 22 U/L (7.0-40); AST/SGOT 9 U/L (<34); BILIRUBIN,TOTAL 0.6 MG/DL (0.3-1.2); BLOOD UREA NITROGEN 20 MG/DL (9-23); CALCIUM LEVEL 9.2 MG/DL (8.3-10.6); CARBON DIOXIDE LEVEL 28 MMOL/L (20-31); CHLORIDE LEVEL 108 MMOL/L (98-107); CHOLESTEROL LEVEL 269 MG/DL (<200); CHOLESTEROL RISK RATIO 6.09 (<5); CREATININE FOR GFR 0.43 MG/DL (0.70-1.30); GLOMERULAR FILTRATION RATE > 60.0 (>42); GLUCOSE, FASTING 88 MG/DL (74-106); HDL CHOLESTEROL 44.1 MG/DL (>40); LDL CHOLESTEROL 197.9 MG/DL (<100); NON-HDL-C 224.9 MG/DL; POTASSIUM SERUM 4.3 MMOL/L (3.5-5.1); SODIUM LEVEL 139 MMOL/L (136-145); TOTAL 25(OH) VITAMIN D 69.7 NG/ML (20.0-100.0); TOTAL PROTEIN 7.1 G/DL (5.7-8.2); TRIGLYCERIDES LEVEL 135 MG/DL (<150)
== END ==
LOC: M PLALAB 14:37
PROVIDERS: ATTEND Internal Medicine Hematology
DX: E78.2 Mixed hyperlipidemia (principal); Z79.899 Other long term (current) drug therapy

== ENCOUNTER → 2024-07-06 | Outpatient (REF) | payer MEDICARE, BC ==
[2024-07-06 19:48] LABS: PSA SCREENING 3.96 NG/ML (< 4.00)
[2024-07-06 19:55] LABS: ALKALINE PHOSPHATASE 73 U/L (40-129); ALT/SGPT 30 U/L (7.0-40); AST/SGOT 18 U/L (<34); BILIRUBIN,TOTAL 0.7 MG/DL (0.3-1.2); BLOOD UREA NITROGEN 21 MG/DL (9-23); CALCIUM LEVEL 9.6 MG/DL (8.3-10.6); CARBON DIOXIDE LEVEL 27 MMOL/L (20-31); CHLORIDE LEVEL 108 MMOL/L (98-107); CHOLESTEROL LEVEL 258 MG/DL (<200); CHOLESTEROL RISK RATIO 5.46 (<5); CREATININE FOR GFR 0.26 MG/DL (0.70-1.30); GLOMERULAR FILTRATION RATE > 60.0 (>42); GLUCOSE, FASTING 89 MG/DL (74-106); HDL CHOLESTEROL 47.2 MG/DL (>40); LDL CHOLESTEROL 183.2 MG/DL (<100); NON-HDL-C 210.8 MG/DL; POTASSIUM SERUM 4.8 MMOL/L (3.5-5.1); SODIUM LEVEL 140 MMOL/L (136-145); TOTAL PROTEIN 7.2 G/DL (5.7-8.2); TRIGLYCERIDES LEVEL 138 MG/DL (<150)
== END ==
LOC: M SFHCCAPE 07:50
PROVIDERS: ATTEND Physician Assistant Medical
DX: E78.2 Mixed hyperlipidemia (principal); Z12.5 Encounter for screening for malignant neoplasm of prostate
CPT/HCPCS: 80053; 80061; G0103

== ENCOUNTER → 2024-09-07 | Outpatient (CLI) | payer MEDICARE, BC ==
[2024-09-07 12:23] LABS: BASO # 0.1 10^3/uL (0.0-0.2); BASO % 1.2 % (0.0-1.0); EOS # 0.2 10^3/uL (0.0-0.5); EOS % 2.7 % (0.0-3.0); HEMATOCRIT 44.7 % (42.0-52.0); HEMOGLOBIN 15.3 g/dl (13.5-17.5); LYMPH # 1.8 10^3/uL (1.5-5.0); LYMPH % 24.9 % (24.0-44.0); MEAN CORPUSCULAR HEMOGLOBIN 30.9 pg (27.0-33.0); MEAN CORPUSCULAR HGB CONC 34.2 g/dl (32.0-36.5); MEAN CORPUSCULAR VOLUME 90.3 fl (80.0-96.0); MONO # 0.8 10^3/uL (0.0-0.8); MONO % 10.3 % (2.0-8.0); NEUTROPHILS # 4.4 10^3/uL (1.5-8.5); NEUTROPHILS % 59.3 % (36.0-66.0); PLATELET COUNT, AUTOMATED 262 10^3/uL (150-450); RED BLOOD COUNT 4.95 10^6/uL (4.30-6.10); WHITE BLOOD COUNT 7.4 10^3/uL (4.0-10.0)
[2024-09-07 12:50] LABS: ALBUMIN 3.9 G/DL (3.2-5.2); ALKALINE PHOSPHATASE 69 U/L (40-129); ALT/SGPT 30 U/L (7.0-40); AST/SGOT 21 U/L (<34); BILIRUBIN,TOTAL 0.7 MG/DL (0.3-1.2); BLOOD UREA NITROGEN 23 MG/DL (9-23); CALCIUM LEVEL 9.3 MG/DL (8.3-10.6); CARBON DIOXIDE LEVEL 27 MMOL/L (20-31); CHLORIDE LEVEL 105 MMOL/L (98-107); CHOLESTEROL LEVEL 197 MG/DL (<200); CHOLESTEROL RISK RATIO 4.29 (<5); CREATININE FOR GFR 0.23 MG/DL (0.70-1.30); GLOMERULAR FILTRATION RATE > 60.0 (>42); GLUCOSE, FASTING 79 MG/DL (74-106); HDL CHOLESTEROL 45.9 MG/DL (>40); LDL CHOLESTEROL 120.1 MG/DL (<100); MAGNESIUM LEVEL 2.1 MG/DL (1.8-2.4); NON-HDL-C 151.1 MG/DL; POTASSIUM SERUM 4.1 MMOL/L (3.5-5.1); SODIUM LEVEL 142 MMOL/L (136-145); TOTAL PROTEIN 7.5 G/DL (5.7-8.2); TRIGLYCERIDES LEVEL 155 MG/DL (<150)
== END ==
LOC: M LAB 10:28
PROVIDERS: ATTEND Internal Medicine Cardiovascular Disease
DX: E78.2 Mixed hyperlipidemia (principal); R06.02 Shortness of breath; I48.0 Paroxysmal atrial fibrillation; Z13.1 Encounter for screening for diabetes mellitus

== ENCOUNTER → 2024-10-18 | Outpatient (CLI) | payer MEDICARE, BC | LOC: M RAD 08:03 | PROVIDERS: ATTEND Internal Medicine Cardiovascular Disease | DX: R94.31 Abnormal electrocardiogram [ECG] [EKG] (principal); Z72.0 Tobacco use; E78.2 Mixed hyperlipidemia ==

== ENCOUNTER → 2024-12-30 | Outpatient (REF) | payer MEDICARE, BC ==
[2024-12-30 18:16] LABS: BASO # 0.1 10^3/uL (0.0-0.2); BASO % 1.1 % (0.0-1.0); EOS # 0.3 10^3/uL (0.0-0.5); EOS % 4.3 % (0.0-3.0); LYMPH # 1.9 10^3/uL (1.5-5.0); LYMPH % 25.2 % (24.0-44.0); MONO # 0.8 10^3/uL (0.0-0.8); MONO % 10.8 % (2.0-8.0); NEUTROPHILS # 4.4 10^3/uL (1.5-8.5); NEUTROPHILS % 57.9 % (36.0-66.0); PLATELET COUNT, AUTOMATED 288 10^3/uL (150-450)
[2024-12-30 18:18] LABS: ALT/SGPT 21 U/L (7.0-40); AST/SGOT 18 U/L (<34); CALCIUM LEVEL 9.1 MG/DL (8.3-10.6); CARBON DIOXIDE LEVEL 28 MMOL/L (20-31); CHLORIDE LEVEL 106 MMOL/L (98-107); CHOLESTEROL LEVEL 217 MG/DL (<200); CHOLESTEROL RISK RATIO 5.57 (<5); CREATININE FOR GFR 0.39 MG/DL (0.70-1.30); GLOMERULAR FILTRATION RATE > 90.0 (>42); LDL CHOLESTEROL 148.9 MG/DL (<100); NON-HDL-C 178.1 MG/DL; POTASSIUM SERUM 4.5 MMOL/L (3.5-5.1); PSA SCREENING 3.98 NG/ML (< 4.00); SODIUM LEVEL 143 MMOL/L (136-145); TRIGLYCERIDES LEVEL 146 MG/DL (<150)
== END ==
LOC: M SFHCCAPE 07:15
PROVIDERS: ATTEND Physician Assistant Medical
DX: M19.90 Unspecified osteoarthritis, unspecified site (principal); E78.2 Mixed hyperlipidemia; Z12.5 Encounter for screening for malignant neoplasm of prostate
CPT/HCPCS: 36415; 80053; 80061; 85025; G0103

== ENCOUNTER → 2025-06-07 | Outpatient (REF) | payer MEDICARE, OTHER ==
[2025-06-07 19:30] LABS: CREATININE FOR GFR 0.46 MG/DL (0.70-1.30); GLOMERULAR FILTRATION RATE > 90.0 (>42)
== END ==
LOC: M LABDRWCV 17:29
PROVIDERS: ATTEND Radiology Therapeutic Radiology
DX: R94.39 Abnormal result of other cardiovascular function study (principal)